=== PATIENT | male | born 1990 | race African-American/Black ===

== ENCOUNTER 2017-01-18 23:22 | Emergency (ER) | payer BC ==
[~2017-01-18] VITALS: Ht 185.4 cm; Wt 89.8 kg
[2017-01-18 23:25] VITALS: BP 151/72
[2017-01-18] MEDS ORDERED: SULF1TAB24 PO (23:36)
--- NOTE | 2017-01-18 23:36 | PHYS DOC ---
Past Medical History Past Medical History: No Pertinent History Past Surgical History: Other Additional Past Surgical Histo: knee surgery Alcohol Use: None Drug Use: None Adult General Chief Complaint Chief Complaint: ABSCESS HPI HPI Patient is a 26 year old male presents to the emergency department stating that he's had an abscess in his right upper arm. He states he's had this for the last 2 days. States that he woke up today and the area appeared to be increased redness and increased painful. He has not taken anything for pain and discomfort. He denies any fever, chills or any nausea or vomiting is unsure when his last tetanus immunization occurred. Review of Systems Review of Systems Constitutional: Denies fever or chills [] Eyes: Denies change in visual acuity, redness, or eye pain [] HENT: Denies nasal congestion or sore throat [] Respiratory: Denies cough or shortness of breath [] Cardiovascular: No additional information not addressed in HPI [] GI: Denies abdominal pain, nausea, vomiting, bloody stools or diarrhea [] : Denies dysuria or hematuria [] Musculoskeletal: Denies back pain or joint pain [] Integument: Denies rash or skin lesions. Abscess right arm. Neurologic: Denies headache, focal weakness or sensory changes [] Endocrine: Denies polyuria or polydipsia [] All other systems were reviewed and found to be within normal limits, except as documented in this note. Current Medications Current Medications Current Medications Medications (Trade) Dose Ordered Sig/Roro Start Time Stop Time Status Last Admin Dose Admin Diphtheria/ Tetanus/Acell Pertussis (Boostrix) 0.5 ml ONCE ONCE 01/18/17 23:45 01/18/17 23:46 DC 01/18/17 23:51 0.5 ML Lidocaine/Sodium Bicarbonate (Buffered Lidocaine 1%) 20 ml 1X ONCE 01/18/17 23:45 01/18/17 23:46 DC 01/18/17 23:50 20 ML Allergies Allergies Allergies Coded Allergies Type Severity Reaction Last Updated Verified No Known Drug Allergies 01/18/17 No Physical Exam Physical Exam Constitutional: Well developed, well nourished, no acute distress, non-toxic appearance. [] HENT: Normocephalic, atraumatic, bilateral external ears normal, oropharynx moist, no oral exudates, nose normal. [] Eyes: PERRLA, EOMI, conjunctiva normal, no discharge. [] Neck: Normal range of motion, no tenderness, supple, no stridor. [] Cardiovascular:Heart rate regular rhythm, no murmur [] Lungs & Thorax: Bilateral breath sounds clear to auscultation [] Skin: Warm, dry, no erythema, no rash. Patient with an abscess to the right distal part of the upper arm that appears to be the size of a quarter with the Center being soft and fluctuant with the outer portions being very hard. Redness was noted as well. No drainage or discharge noted. Extremities: No tenderness, no cyanosis, no clubbing, ROM intact, no edema. [] Neurologic: Alert and oriented X 3, normal motor function, normal sensory function, no focal deficits noted. [] Psychologic: Affect normal, judgement normal, mood normal. [] Current Patient Data Vital Signs Vital Signs Date Time Temp Pulse Resp B/P (MAP) Pulse Ox O2 Delivery O2 Flow Rate FiO2 01/18/17 23:25 98.0 60 18 97 Room Air 98.0 EKG EKG [] Radiology/Procedures Radiology/Procedures [] Course & Med Decision Making Course & Med Decision Making Pertinent Labs and Imaging studies reviewed. (See chart for details) Patient was instructed to keep the area clean and dry he was also instructed to place warm moist packs over the area 5 times a day. He is provided with signs and symptoms to return back to the emergency department. He was instructed to follow up with the primary care physician in the next 3-5 days for wound evaluation. Patient will be provided with Bactrim with recommendations for Tylenol and ibuprofen for pain and discomfort. Patient will be discharged home in stable condition signs and symptoms to return back to the emergency department has been provided. All questions and concerns have been answered at the patients bedside. I've spoken with the patient and/or caregivers. I've explained the patient's condition, diagnosis and treatment plan based on information available to me at this time. I've answered the patient's and/or caregivers questions and addressed any concerns. The patient and/or caregivers have a good understanding the patient's diagnosis, condition and treatment plan as can be expected at this point. Vital signs have been stabilized. The patient's condition is stable for discharge from the emergency department. The patient will pursue further outpatient evaluation with her primary care provider or other designated consulting physician as outlined in the discharge instructions. Patient and/or caregivers are agreeable to this plan of care and follow-up instructions have been explained in detail. The patient and/or caregivers have received these instructions in written format and expressed understanding of these discharge instructions. The patient and her caregivers are aware that if any significant change in condition or worsening of symptoms should prompt him to immediately return to this of the closest emergency department. If an emergent department is not readily available I would encourage him to call 911.[] Dragon Disclaimer Dragon Disclaimer This electronic medical record was generated, in whole or in part, using a voice recognition dictation system. Departure Departure Impression: Primary Impression: Abscess Disposition: HOME, SELF-CARE Condition: STABLE Patient Instructions: Abscess, [id number] Additional Instructions: Keep the area clean and dry. Clean the site twice a day with soap and water. Antibiotics as prescribed. Tylenol or Ibuprofen for pain and discomfort Warm moist packs to the area 5 times a day Follow-up with primary care physician in the next 3-5 days. Return back to emergency #symptoms become worse. Scripts Sulfamethoxazole/Trimethoprim (BACTRIM DS TABLET) 1 Each Tablet 2 TAB PO BID, #40 TAB Prov: BRANDAN COLLINS APRN 01/18/17 Incision and Drainage Incision and Drainage : Site: right distal upper arm Blade Size: 11 I & D Procedure: betadine prep, sterile drapes applied, sterile dressing applied BRANDAN COLLINS APRN Jan 18, 2017 23:36
[2017-01-18] MEDS ORDERED: DIPHTH,PERTUSS(ACELL),TET TOX 0.5 ML DISP.SYRIN. VAX IM ONE (23:45)
[2017-01-18] MEDS ORDERED: LIDOCAINE 1% / SOD BICARB 8.4% 20 ML VIAL. IJ ONE (23:45)
== END 2017-01-19 00:02 | disposition home or self-care (01) ==
LOC: ER 23:22
DX: L02.413 Cutaneous abscess of right upper limb (principal)
CPT/HCPCS: 10060; 90471; 90715; 99283-25